=== PATIENT | male | born 1975 | race Caucasian/White ===

== ENCOUNTER 2021-12-06 10:33 | Emergency (ER) | payer OTHER, SELFPAY ==
[2021-12-06 10:48] VITALS: BP 109/68; PULSE 66; RESP 18; TEMP 37.1; O2SAT 97
--- NOTE | 2021-12-06 11:45 | ED.URI ---
HPI - URI/Sore Throat General Chief Complaint: Upper Respiratory Infection Stated Complaint: Fever/Cough/Chills Source: patient, RN notes reviewed and old records reviewed Mode of arrival: ambulatory History of Present Illness HPI Narrative: 46 year old male who presents to [facility] care with complaints of past 2 day history of tactile fever, cough, some sweats and body aches and fatigue. Patient states that he awoke this morning at about 0330 drenched in sweat Patient reports that he works at the [employer] and there have been some of his coworkers who have recently tested positive for COVID. Patient reports that he has been vaccinated and also has had flu shots. Patient has been taking Ibuprofen for his discomfort. MD elicited complaint: fever, cough and other (chills) Treatments prior to arrival: ibuprofen Related Data Home Medications Medication Instructions Recorded Confirmed No Home Medications 12/06/21 12/06/21 Allergies Allergy/AdvReac Type Severity Reaction Status Date / Time No Known Allergies Allergy Verified 12/06/21 10:55 Review of Systems Review of Systems: CONSTITUTIONAL:reports tactile fever, chills, or sweats. EYES: Denies visual changes, redness, or discharge. ENT: Denies rhinorrhea, congestion, sore throat, or otalgia. CARDIOVASCULAR: Denies chest pain, palpitations, or edema. RESPIRATORY Positive for cough denies dyspnea. GASTROINTESTINAL: Denies abdominal pain, nausea, vomiting, or diarrhea. GENITOURINARY: Denies dysuria or hematuria. SKIN: Denies rash or itching. MUSCULOSKELETAL: Denies back pain, joint pain, some body aches and fatigue. NEUROLOGIC: Denies headache, numbness, or weakness. PSYCHIATRIC: Denies anxiety or depression. [facility] Past Medical History Medical History (Updated 12/07/21 @ 14:50 by Rosario Tellez NP) No significant past medical history Surgical History Surgical History (Updated 12/07/21 @ 14:50 by Rosario Tellez NP) No history of previous surgery Social History Social History (Updated 12/07/21 @ 14:49 by Rosario Tellez NP) Smoking status: Never smoker Alcohol intake: current Alcohol use details: social Substance use: never Living arrangements: with family Gender identity (if verbalized by the patient): Male Comments At time of signature agree with nursing documentation of past medical social, surgical and family history. There is no relevant past family history pertinent to presenting complaints. Exam Narrative: GENERAL: Well-appearing, well-nourished, and in no acute distress. Alert and oriented x3 HEAD: Normocephalic, atraumatic. EYES: PERRLA and EOMI. ENT: Nares clear, no rhinorrhea or epistaxis. Mucous membranes moist. TMs normal with good light reflex throat pink no lesions or exudates or tonsillar swelling NECK: Supple. No lymphadenopathy CHEST: Clear to auscultation. No respiratory distress. SaO2 97% on room air no tachypnea, denies any dyspnea, non productive cough HEART: Regular rate and rhythm. No murmur heard. Normal peripheral pulses. ABDOMEN: Soft, nontender, nondistended, normal active bowel sounds. EXTREMITIES: Normal range of motion. No edema. SKIN: Warm, dry, no rash NEURO: No focal deficits. Alert and oriented x3. Course Course Level of Care: Express Care Visit Vital Signs Vital signs: Vital Signs Temperature 37.1 C 12/06/21 10:48 Pulse Rate 66 12/06/21 10:48 Respiratory Rate 18 12/06/21 10:48 Blood Pressure 109/68 12/06/21 10:48 Pulse Oximetry 97 12/06/21 10:48 Oxygen Delivery Room Air 12/06/21 10:48 Temperature 37.1 C 12/06/21 10:48 Pulse Rate 66 12/06/21 10:48 Respiratory Rate 18 12/06/21 10:48 Blood Pressure 109/68 12/06/21 10:48 Pulse Oximetry 97 12/06/21 10:48 Oxygen Delivery Room Air 12/06/21 10:48 MDM - URI/Sore Throat Differential Diagnosis Differential diagnosis: Likely upper respiratory infection, viral infection, influenza and other (cough) Medic
== END 2021-12-06 12:07 | disposition home or self-care (01) ==
PROVIDERS: Emergency Provider Registered Nurse; PCP Physician Assistant
DX: J06.9 Acute upper respiratory infection, unspecified (principal); Z20.822 Contact with and (suspected) exposure to COVID-19
CPT/HCPCS: 87426; 87804; 99213; C9803; G0463